=== PATIENT | male | born 1970 | race Caucasian/White ===

== ENCOUNTER 2020-08-15 13:37 | Observation (INO) | payer BC, SELFPAY ==
--- NOTE | ~2020-08-15 | XR_ITS ---
EXAMINATION: XR hand LT min 3V INDICATION: Left hand pain and swelling TECHNIQUE: Three views of the left hand are obtained. COMPARISON: None available FINDINGS: There is dorsal soft tissue swelling of the hand overlying the metacarpals. The underlying osseous structures are unremarkable. The joint spaces are maintained. No radiopaque foreign body is i dentified. IMPRESSION: 1. Dorsal soft tissue swelling of the hand without evidence of underlying osseous abnormality or radi opaque foreign body. Reviewed, dictated and finalized at location A. YARD CRANE OPERATOR IMPRESSION: 1. Dorsal soft tissue swelling of the hand without evidence of underlying osseo us abnormality or radiopaque foreign body.
[2020-08-15 13:42] VITALS: BP 158/95; PULSE 96; RESP 18; TEMP 36.5; O2SAT 99
--- NOTE | 2020-08-15 14:42 | ED.WOUNDLAC ---
HPI - Wound/Laceration General Chief Complaint: Extremity Injury, Upper <Sherrell Lugo PA-C - Last Filed: 08/15/20 17:50> Stated Complaint: swelling left hand <MANDI Sandy Last Filed: 08/15/20 17:50> Time Seen by Provider: 08/15/20 14:21 <MANDI Sandy Last Filed: 08/15/20 17:50> Source: patient <MANDI Sandy Last Filed: 08/15/20 17:50> Mode of arrival: ambulatory <Sherrell Lugo PA-C - Last Filed: 08/15/20 17:50> Limitations: no limitations <MANDI Sandy Last Filed: 08/15/20 17:50> History of Present Illness HPI narrative: This is a 50 year old male that presents to the ER for left hand swelling x 2 weeks. Reports he sustained a laceration from a hatchet. Reports he had sutures placed at [place]. Reports he has had increasing redness and swelling of the hand since. Reports he was seen at Urgent Care for this yesterday and started on Cephalexin. He has taken 3 doses without relief. Denies fever. <Sherrell Lugo PA-C - Last Filed: 08/15/20 17:50> Related Data Allergies/Adverse Reactions: Allergies Allergy/AdvReac Type Severity Reaction Status Date / Time No Known Allergies Allergy Mild Unverified 01/29/12 08:25 <MANDI Sandy Last Filed: 08/15/20 17:50> Review of Systems Review of Systems: Narrative: CONSTITUTIONAL: Denies fever SKIN: Reports erythema and edema NEUROLOGIC: Denies numbness <MANDI Sandy Last Filed: 08/15/20 17:50> All systems reviewed & are unremarkable except as noted in HPI and below <Sherrell Lugo PA-C - Last Filed: 08/15/20 17:50> [facility] Past Medical History Medical History: Medical History (Updated 08/15/20 @ 17:50 by Sherrell Lugo PA-C) No active medical problems <MANDI Sandy Last Filed: 08/15/20 17:50> Social History Social History: Social History (Updated 08/15/20 @ 14:47 by Sherrell Lugo PA-C) Smoking status: Current every day smoker <Sherrell Lugo PA-C - Last Filed: 08/15/20 17:50> Exam Narrative: Exam Narrative: GENERAL: Well-appearing, well-nourished, and in no acute distress. HEAD: Normocephalic, atraumatic. EYES: EOMI. EXTREMITIES: Normal range of motion. Moderate edema and erythema to the left hand. Dorsal surface of the hand with 2.5cm healing laceration. No abnormal drainage noted. Normal sensation. Normal radial pulses SKIN: Warm, dry, no rash. NEURO: No focal deficits. Alert and oriented x3. PSYCH: Normal mood and affect <Sherrell Lugo PA-C - Last Filed: 08/15/20 17:50> Course CANDY WRAPPING MACHINE OPERATOR/PA Physician Supervision For this patient encounter, I reviewed the CANDY WRAPPING MACHINE OPERATOR or PA documentation, treatment plan, and medical decision making; and I had [id number] time with this patient. 50-year-old male presents to emergency department for left hand infection. Patient had sutures placed about 2 weeks ago after sustaining an injury to his left hand at a local emergency department. Patient states the swelling and erythema has worsened over the past 2 weeks. Has not take anything for the pain so far. Physical exam reveals left hand posterior wound with erythema and swelling noted. <Jose Manuel Smith DO - Last Filed: 08/15/20 17:37> Consultations Consultation #1: Spoke with Dr. Berkowitz about patient and work-up will consult. <Sherrell Lugo PA-C - Last Filed: 08/15/20 17:50> Date: 08/15/20 <Sherrell Lugo PA-C - Last Filed: 08/15/20 17:50> Time: 17:46 <Sherrell Lugo PA-C - Last Filed: 08/15/20 17:50> Consultation #2: Spoke with hospitalist about patient and work-up who accepts admission <Sherrell Lugo PA-C - Last Filed: 08/15/20 17:50> Date: 08/15/20 <Sherrell Lugo PA-C - Last Filed: 08/15/20 17:50> Time: 17:46 <Sherrell Lguo PA-C - Last Filed: 08/15/20 17:50> Vital Signs Vital signs: Vital Signs Temperature 97.7 F 08/15/20 13:42 Pulse Rate 96 08/15/20 13:4
[2020-08-15 15:11] LABS: Basophils Absolute Auto 0.1 K/mm3 (0.0-0.1); Basophils Percent Auto 0.8 % (0.2-1.2); Eosinophils Absolute Auto 0.3 K/mm3 (0-0.3); Eosinophils Percent Auto 2.1 % (0-4.4); Hematocrit 47.7 % (42.0-52.0); Hemoglobin 16.5 g/dL (14.0-18.0); Immature Granulocyte Absolute 0.04 K/mm3 (0.00-0.031); Immature Granulocyte Percent A 0.3 % (0-0.5); Lymphocytes Absolute Auto 2.35 K/mm3 (0.9-3.2); Lymphocytes Percent Auto 19.4 % (18.3-44.2); Mean Corpuscular HGB Conc 34.6 g/dl (32-36); Mean Corpuscular Hemoglobin 30.3 pg (26-34); Mean Corpuscular Volume 87.5 fl (80-100); Mean Platelet Volume 8.7 fl (7.4-10.4); Monocytes Absolute Auto 1.2 K/mm3 (0.1-0.6); Monocytes Percent Auto 9.6 % (2.6-8.5); Neutrophils Absolute Auto 8.2 K/mm3 (1.3-6.7); Neutrophils Percent Auto 67.8 % (45.5-73.1); Platelet Count Result 359 k/mm3 (150-375); Red Blood Count 5.45 M/mm3 (4.6-6.20); Red Cell Distribution Width 13.4 % (11.5-14.5); White Blood Count 12.1 K/mm3 (4.5-10.0)
[2020-08-15 15:54] LABS: Anion Gap 6 mmol/L (8-16); Blood Urea Nitrogen 8 mg/dL (9-20); CRP 0.8 mg/dL (<1.0); Calcium 9.1 mg/dL (8.4-10.2); Carbon Dioxide 29 mmol/L (22-30); Chloride 101 mmol/L (98-107); Estimated CRCL calculation 123 ml/min; Estimated Glomerular Filt Rate > 60; Glucose 79 mg/dL (75-110); Potassium 3.9 mmol/L (3.4-5.0); Sodium 136 mmol/L (137-145)
[2020-08-15 16:34] LABS: Erythrocyte Sedimentation Rate 1 mm/hr (0-20)
[2020-08-15] MEDS: TETANUS,DIPHTHERIA,AC PERTUSSIS ADULT (0.5 ML) BOOSTRIX IM (18:20)
[2020-08-15 18:21] VITALS: BP 146/92; PULSE 84; RESP 16; O2SAT 99
[2020-08-15] MEDS: KETOROLAC 30 MG/ML VIAL (*BKC) IV PUSH (18:27)
--- NOTE | 2020-08-15 18:35 | PC.NURSE ---
This patient, Porfirio Rg, was admitted to Medical Room 340-01. Patient/family oriented to hospital policies and general routines including ID bracelet, bed and alarms, visiting hours, pain management, procedures, bathroom and other care routines, personal items, smoking policy, room service/diet, and visiting hours. Information on how to activate the Rapid Response Team has been discussed. Patient/Family are encouraged to report perceived risks to care and to ask questions if they do not understand what they are told or what they should do.
[2020-08-15 18:42] VITALS: BP 134/94; PULSE 78; RESP 16; TEMP 36.1; O2SAT 100; BMI 22.6
--- NOTE | 2020-08-15 18:43 | PC.NURSE ---
Pt transported to [address] [place] [address] with vancomycin still infusing. Pt handed off to МАРИНА Gandara
[2020-08-15 20:18] VITALS: BP 132/65; PULSE 93; RESP 16; TEMP 36.6; O2SAT 100
--- NOTE | 2020-08-15 23:30 | PM.IMHP ---
H&P: HPI History of Present Illness Date/Time: 08/15/20 23:30 Chief complaint: Left hand pain and swelling. Narrative: Porfirio Rg is a pleasant left handed 50-year-old male smoker without significant medical history presented to the emergency department for evaluation of left hand pain and swelling. He sustained a laceration on the dorsum of his left hand about 2 weeks ago and had it sutured at [place]. Over the 7-10 days or so he has developed swelling and discomfort at the site, and was seen at a local urgent care yesterday. He was prescribed Keflex and has taken 3 doses, however he continues to have swelling, pain, and increasing redness about the site and thus he came in today for evaluation. He has not noticed any significant drainage and is able to make a fist and extend his fingers without issue, albeit he does have pain with that. No numbness or tingling in the fingers of the left hand. He also denies fever, chills, and sweats. No history of MRSA. Review of Systems Review of Systems: Narrative: Twelve systems were reviewed with pertinent positives and negatives as per HPI. No fever, chills, or sweats. No recent cold or flu symptoms. He denies cough and shortness of breath. No exposure to those positive for COVID-19. Except as documented, all other systems were reviewed and are negative. [facility] Past Medical History Medical History (Updated 08/15/20 @ 23:50 by Jen Kaye PA-C) Gastroesophageal reflux disease Tobacco dependence Surgical History Surgical History (Updated 08/15/20 @ 23:50 by Jen Kaye PA-C) History of herniorrhaphy (~2014) Family History Family History (Updated 08/16/20 @ 00:06 by Jen Kaye PA-C) Other No significant family history Social History Social History (Updated 08/16/20 @ 00:07 by Jen Kaye PA-C) Social History: Surrogate decision maker: matt Barros. Code status: Full code. Smoking packs per day: 2 Smoking cigarettes per day: 40.0 Smoking status: Current every day smoker Alcohol intake: current Drinks per week: 14 Substance use type: marijuana Last use: 08/14/2020 Additional living arrangements comments: Resides in [place] with his matt. 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 Spiritual care concerns: No Meds Home Medications and Allergies Home Medications Medication Instructions Recorded Confirmed Type No Home Medications 08/15/20 08/15/20 History Allergies Allergy/AdvReac Type Severity Reaction Status Date / Time No Known Allergies Allergy Mild Unverified 01/29/12 08:25 Vital Signs Vital Signs - 24 hr 08/15/20 13:42 08/15/20 18:21 08/15/20 18:42 Temperature 97.7 F 97.0 F L Pulse Rate 96 84 78 Respiratory Rate 18 16 16 Blood Pressure 158/95 H 146/92 H 134/94 H Pulse Oximetry 99 99 100 08/15/20 20:18 Temperature 98 F Pulse Rate 93 Respiratory Rate 16 Blood Pressure 132/65 Pulse Oximetry 100 Exam Narrative: Exam Narrative: General: Well-developed male supine in bed in no distress. Weight: 77.9 kg. BMI: 22.7. HEENT: PERRL, EOMI. Sclerae anicteric. Oral mucosa moist. Oropharynx clear. Neck: Supple. Respiratory: Lungs are clear to auscultation bilaterally. Cardiovascular: Regular rate and rhythm with S1-S2. Gastrointestinal: Abdomen is soft, nontender, and nondistended with positive bowel sounds. Skin: Warm and dry. Extremities: No cyanosis, clubbing, or lower extremity edema. Radial and pedal pulses intact. There is erythema on the proximal, dorsal aspect of the left hand with generalized edema. A dressing is in place which was not removed for examination, as this was recently placed in the emergency department. Capillary refill distal to the laceration is less than 2 seconds. He is neurovascular intact throughout the left hand and fingers. Neurological: Alert. Cranial nerves 2-12 are grossly intact. No
[2020-08-16] MEDS: NICOTINE (*PBKC) 21 MG PATCH 1 PATCH TRANSDERM ×2 (00:53→09:26)
[2020-08-16 05:05] VITALS: BP 124/79; PULSE 90; RESP 16; TEMP 36.1; O2SAT 99
[2020-08-16] MEDS: HYDROcodone/acetaminophen (*CRX) 5-325 MG TABLET 1 TAB PO (06:24)
--- NOTE | 2020-08-16 06:54 | WPDCN ---
Assessment and Plan Assessment and plan (1) Cellulitis of left hand: Code(s): L03.114 - Cellulitis of left upper limb Status: Acute Assessment and Plan: Per patient significance improvement overnight. I see no the drain. Continue antibiotics. Follow up with me in office. Today we had a lengthy discussion about the options. The care. What monitor for. This was a lengthy open-ended conversation making sure he was well informed. He would like proceed as above. I will see him back in clinic. Discharge planning per hospitalist. Please feel free to call me with any questions or concerns. (2) Elevated blood pressure reading: Code(s): R03.0 - Elevated blood-pressure reading, without diagnosis of hypertension Status: Acute (3) Tobacco dependence: Code(s): F17.200 - Nicotine dependence, unspecified, uncomplicated Status: Acute Assessment and Plan: He understands risk of nicotine use. HPI Data of Consult Date/Time: 08/16/20 06:54 He is a left-hand dominant gentleman that comes in today for evaluation of his left dorsal hand. Approximately 2 weeks ago we cut this with hatchet. He had great range of motion this was repaired [facility]. He was doing well until recently be and have a little bit of erythema. Went to the emergency room yesterday and a temp to drain. No purulence identified. Subsequently was admitted for IV antibiotics. He says since that time he has actually seen significant improvement just overnight. Good range of motion. Normal sensation. No fevers or chills. No nausea vomiting. No shortness of breath. No chest pain. Requesting Physician: Bryce Savage PA-C Primary Care Provider: EQUINE MANAGER PHYSICIAN Consult Narrative Narrative: Porfirio Rg is a 50 year old male Review of Systems Review of Systems: All systems reviewed & are unremarkable except as noted in HPI and below PMFSH Past Medical History Medical History (Updated 08/15/20 @ 23:50 by Jen Kaye PA-C) Gastroesophageal reflux disease Tobacco dependence Surgical History Surgical History (Updated 08/15/20 @ 23:50 by Jen Kaye PA-C) History of herniorrhaphy (~2014) Family History Family History (Updated 08/16/20 @ 00:06 by Jen Kaye PA-C) Other No significant family history Social History Social History (Updated 08/16/20 @ 00:07 by Jen Kaye PA-C) Social History: Surrogate decision maker: matt Barros. Code status: Full code. Smoking packs per day: 2 Smoking cigarettes per day: 40.0 Smoking status: Current every day smoker Alcohol intake: current Drinks per week: 14 Substance use type: marijuana Last use: 08/14/2020 Additional living arrangements comments: Resides in [place] with his matt. 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 Spiritual care concerns: No Meds Home Medications and Allergies Home Medications Medication Instructions Recorded Confirmed Type No Home Medications 08/15/20 08/15/20 History Allergies Allergy/AdvReac Type Severity Reaction Status Date / Time No Known Allergies Allergy Mild Unverified 01/29/12 08:25 Vital Signs Vital Signs - 24 hr 08/15/20 13:42 08/15/20 18:21 08/15/20 18:42 Temperature 36.5 C 36.1 C L Pulse Rate 96 84 78 Respiratory Rate 18 16 16 Blood Pressure 158/95 H 146/92 H 134/94 H Pulse Oximetry 99 99 100 08/15/20 20:18 08/16/20 05:05 Temperature 36.6 C 36.1 C L Pulse Rate 93 90 Respiratory Rate 16 16 Blood Pressure 132/65 124/79 Pulse Oximetry 100 99 Exam Narrative: Exam Narrative: Left hand with a full normal range of motion. Normal gross sensation. He does have a little erythema along the dorsum however the I see no purulence or fluctuance. Const: General: comfortable, no acute distress, alert and awake; No acute distress Orientation/consciousness: orie
[2020-08-16 09:15] LABS: Anion Gap 7 mmol/L (8-16); Basophils Absolute Auto 0.1 K/mm3 (0.0-0.1); Blood Urea Nitrogen 7 mg/dL (9-20); Calcium 8.4 mg/dL (8.4-10.2); Carbon Dioxide 30 mmol/L (22-30); Chloride 101 mmol/L (98-107); Eosinophils Absolute Auto 0.4 K/mm3 (0-0.3); Eosinophils Percent Auto 3.8 % (0-4.4); Estimated CRCL calculation 107 ml/min; Estimated Glomerular Filt Rate > 60; Glucose 146 mg/dL (75-110); Hematocrit 45.9 % (42.0-52.0); Hemoglobin 15.3 g/dL (14.0-18.0); Immature Granulocyte Absolute 0.02 K/mm3 (0.00-0.031); Immature Granulocyte Percent A 0.2 % (0-0.5); Lymphocytes Absolute Auto 2.36 K/mm3 (0.9-3.2); Lymphocytes Percent Auto 25.9 % (18.3-44.2); Mean Corpuscular HGB Conc 33.3 g/dl (32-36); Mean Corpuscular Hemoglobin 29.3 pg (26-34); Mean Corpuscular Volume 87.8 fl (80-100); Mean Platelet Volume 9.1 fl (7.4-10.4); Monocytes Absolute Auto 0.9 K/mm3 (0.1-0.6); Monocytes Percent Auto 9.6 % (2.6-8.5); Neutrophils Absolute Auto 5.4 K/mm3 (1.3-6.7); Neutrophils Percent Auto 59.5 % (45.5-73.1); Platelet Count Result 350 k/mm3 (150-375); Potassium 3.9 mmol/L (3.4-5.0); Red Blood Count 5.23 M/mm3 (4.6-6.20); Red Cell Distribution Width 13.1 % (11.5-14.5); Sodium 138 mmol/L (137-145); White Blood Count 9.1 K/mm3 (4.5-10.0)
--- NOTE | 2020-08-16 09:56 | PM.IMPN ---
Progress Note: A&P Assessment and Plan (1) Cellulitis of left hand: Code(s): L03.114 - Cellulitis of left upper limb Status: Acute Assessment and Plan: Patient appears to have improved clinically overnight. Afebrile, Leukocytosis improved. As discussed in HPI, patient agreeable to stay overnight for additional IV antibiotics and repeat labs in the morning. Dr. Berkowitz consulted and appreciate recommendations Will continue with IV vanc for now Likely discharge on PO bactrim tomorrow if continued improvement Monitor labs. Pain control as needed; encouraged tylenol if tolerable Monitor overnight (2) Elevated blood pressure reading: Code(s): R03.0 - Elevated blood-pressure reading, without diagnosis of hypertension Status: Acute Assessment and Plan: BP appears to have imrpoved overnight. 120s sys this morning Monitor for now Consider adding bp med if no improvement (3) Tobacco dependence: Code(s): F17.200 - Nicotine dependence, unspecified, uncomplicated Status: Acute Assessment and Plan: Smoking cessation encouraged nicotine patch available as needed Subjective Date/time seen: 08/16/20 09:56 Interval history: Patient is a 50 yo M with history of GERD and tobacco dependance who is seen in follow up for left hand cellulitis after sustaining a laceration roughly 2 weeks ago. Patient states he has seen much improvement in his range of motion, swelling and pain. Redness has also improved. He is eager to leave today but after long discussion about different options including staying overnight for further IV antibiotics, he was agreeable to this plan. No other complaints at the moment. Denies subjective f/c/s, cp/palpitations, sob/cough, n/v/d/c, abd pain, changes in BMs, dysuria, calf pain/swelling. Review of Systems Review of Systems: All systems reviewed & are unremarkable except as noted in HPI and below Exam Narrative: Exam Narrative: General: Patient resting supine in bed in no acute distress. HEENT: Normocephalic, EOMI, oral mucosa moist. Cardiovascular: Rate and rhythm are regular. No notable murmur, rub, or gallop. Respiratory: Lungs clear to auscultation all morales. Non-labored breathing. Abdomen: Soft, non-tender, non-distended, bowel sounds present. Extremities: Peripheral pulses intact. No LE edema. Left hand has generalized edema; apparent full ROM; fish drier strength 5/5 b/l; cap refill <2 seconds; NVI; bandage over dorsum of hand removed and showed quarter-sized erythema and edema surrounding a roughly 2-3cm healing laceration with no apparent drainage; well approximated borders Neuro: No focal neurological deficits. Speech is clear. Objective Data Vital Signs Vital Signs: Last Vital Signs Temp 96.9 F L 08/16/20 05:05 Pulse 90 08/16/20 05:05 Resp 16 08/16/20 05:05 BP 124/79 08/16/20 05:05 Pulse Ox 99 08/16/20 05:05 Intake/Output Intake/Output: Intake & Output 08/13/20 08/14/20 08/15/20 08/16/20 23:59 23:59 23:59 23:59 Intake Total 300 1410 Output Total 950 Balance 300 460 Meds/Results Medications: Active Medications Generic Name Dose Route Start Last Admin Trade Name Freq PRN Reason Stop Dose Admin Acetaminophen 650 mg 08/16/20 00:12 Acetaminophen 325 Mg Tablet PO Q6H PRN Mild Pain (1-3) or Fever Hydrocodone Bitart/Acetaminophen 1 tab 08/16/20 00:12 08/16/20 06:24 Hydrocodone/Acetaminophen (*Crx) 5-325 Mg Tablet PO 1 tab Q6H PRN Administration Pain Rated 4-6 Cefazolin Sodium 1 gm in 50 mls @ 100 mls/hr 08/16/20 02:00 08/16/20 09:28 Ancef 1 Gm/D5w 50 Ml Pm IVPB 100 mls/hr Q8H BRIAN Administration Vancomycin HCl 1,250 mg in 250 mls @ 200 mls/hr 08/16/20 04:00 08/16/20 06:13 Vancomycin 1,250 Mg/D5w 250 Ml IVPB Infused Q12H [facility] Infusion
[2020-08-16 14:00] VITALS: BP 133/83; PULSE 86; RESP 16; TEMP 36.1; O2SAT 99
[2020-08-16 19:35] VITALS: BP 133/83; PULSE 88; RESP 18; TEMP 36.1; O2SAT 98
[2020-08-17 03:15] LABS: Hematocrit 47.6 % (42.0-52.0); Hemoglobin 16.2 g/dL (14.0-18.0); Mean Corpuscular Hemoglobin 30.1 pg (26-34); Mean Corpuscular Volume 88.5 fl (80-100); Mean Platelet Volume 8.8 fl (7.4-10.4); Platelet Count Result 337 k/mm3 (150-375); Red Blood Count 5.38 M/mm3 (4.6-6.20); Red Cell Distribution Width 13.2 % (11.5-14.5); White Blood Count 8.7 K/mm3 (4.5-10.0)
[2020-08-17 03:31] LABS: Anion Gap 3 mmol/L (8-16); Blood Urea Nitrogen 7 mg/dL (9-20); Calcium 8.5 mg/dL (8.4-10.2); Carbon Dioxide 32 mmol/L (22-30); Chloride 103 mmol/L (98-107); Estimated CRCL calculation 121 ml/min; Estimated Glomerular Filt Rate > 60; Glucose 106 mg/dL (75-110); Magnesium 2.1 mg/dL (1.6-2.3); Potassium 3.8 mmol/L (3.4-5.0); Sodium 138 mmol/L (137-145)
[2020-08-17 04:02] LABS: Vancomycin Trough 6.6 ug/mL (10.0-20.0)
[2020-08-17 06:00] VITALS: BP 114/68; PULSE 77; RESP 16; TEMP 36.2; O2SAT 97
[2020-08-17] MEDS: NICOTINE (*PBKC) 21 MG PATCH 1 PATCH TRANSDERM (08:05)
--- NOTE | 2020-08-17 08:27 | PM.DS ---
DS: Admitting Diagnosis Admitting Diagnosis Admitting Diagnosis: Left hand pain and swelling. DS: Discharge Diagnosis Discharge Diagnosis (1) Cellulitis of left hand: Code(s): L03.114 - Cellulitis of left upper limb Status: Acute Assessment and Plan: Patient clinically improved again overnight. Afebrile during stay, Leukocytosis WNL today. Dr. Berkowitz consulted and appreciate recommendations IV vanc during stay (ancef IV initially as well, but d/c'd) Discharge today on PO DS bactrim Q12 starting tonight, through 08/22 to complete 7 days total of antibiotics Tylenol PRN (2) Elevated blood pressure reading: Code(s): R03.0 - Elevated blood-pressure reading, without diagnosis of hypertension Status: Acute Assessment and Plan: BP appears to have imrpoved; 110s sys this morning F/u with PCP once established (3) Tobacco dependence: Code(s): F17.200 - Nicotine dependence, unspecified, uncomplicated Status: Acute Assessment and Plan: Smoking cessation encouraged during stay nicotine patch available as needed DS: Summary Hospital Course Reason for hospitalization: Left hand cellulitis; failed OP therapy Hospital Course: Patient is a 50 yo male smoker who presented to ED on 08/15 from home for evaluation of left hand pain/swelling that had been ongoing for 2 weeks after patient sustained a laceration with an axe on the dorsum of his left hand. The laceration was treated at [facility] 2 weeks ago and over the past 7-10 days prior to arrival to our ED, he developed swelling and discomfort prompting him to proceed to an UC where he was prescribed PO Keflex. He took 3 doses without improvement and had increasing redness prompting him to proceed to our ED. While in the ED, he was found to have leukocytosis of 12.1k, afebrile, and stable VS with elevated initial BP. Dr. Berkowitz was consulted from the ED for further input. Patient admitted under this setting. Please see H&P for further details. Patient was admitted to the hospitalist service for further evaluation/management. Initially, patient placed on vanc and Ancef IV from the ED, however, Ancef was discontinued. He continued on IV vanc through morning of 08/17 with improvement in his swelling and redness and pain; he was able to have increased ROM in his left hand, being able to now make a fist. His leukocytosis resolved and he remained afebrile with stable VS. BCx showing NGTD x 5 days. Plan was for him to continue antibiotic therapy with Bactrim through 08/22 to complete a course of 7 days total of antibiotics. He was to follow up with Dr. Berkowitz after discharge. Patient agreeable and comfortable with plan for discharge. Patient hemodynamically stable and in improved condition for discharge on 08/17 Status at Discharge Overall status at discharge: patient is progressing back to baseline Time Spent with Patient Time attestation: Total time spent providing and/or coordinating discharge services: Time spent: Greater than 30 minutes Exam Narrative: Exam Narrative: General: Patient sitting on side of bed in bed in no acute distress. HEENT: Normocephalic, EOMI, oral mucosa moist. Cardiovascular: Rate and rhythm are regular. No notable murmur, rub, or gallop. Respiratory: Lungs clear to auscultation all morales. Non-labored breathing. Abdomen: Soft, non-tender, non-distended, bowel sounds present. Extremities: Peripheral pulses intact. No LE edema. Left hand has generalized edema which has slightly improved; apparent full ROM; shuttle fitting supervisor strength 5/5 b/l; cap refill <2 seconds; NVI; bandage over dorsum of hand removed and showed quarter-sized improved but slight erythema and edema surrounding a roughly 2-3cm healing laceration with no apparent drainage; well approximated borders Neuro: No
== END 2020-08-17 10:03 | disposition home or self-care (01) ==
LOC: ANHED 17:50 → ANH3MED 18:31
PROVIDERS: Physician Assistant; Admitting Provider Family Medicine; Emergency Provider Emergency Medicine; Referring Provider Family Medicine; Visit Provider Internal Medicine
DX: L03.114 Cellulitis of left upper limb (principal); R03.0 Elevated blood-pressure reading, without diagnosis of hypertension; F17.210 Nicotine dependence, cigarettes, uncomplicated; K21.9 Gastro-esophageal reflux disease without esophagitis; F12.90 Cannabis use, unspecified, uncomplicated
CPT/HCPCS: 36415; 73130; 80048; 80202; 83735; 85025; 85027; 85652; 86140; 87040; 90471; 90715; 96365; 96366; 96367; 96375; 99285; A9270; G0378; J0690; J1885; J3370

== ENCOUNTER 2023-04-17 16:33 | Emergency (ER) | payer BC, SELFPAY ==
--- NOTE | ~2023-04-17 | XR_ITS ---
XR lumbar spine 2-3V DATE: 04/17/2023 17:32 INDICATION: Low back pain. No known injury. TECHNIQUE: AP, lateral, coned lateral lumbosacral views COMPARISON: 07/02/2014 lumbar spine FINDINGS: There are 6 functional lumbar vertebrae. There is mild thoracolumbar dextroscoliosis. There is degenerative change at the lumbar apophyseal joints with associated grade 1 anterolisthesis at L3-4 and L4-5. There is mild degenerative disc disease throughout the lumbar and lumbosacral spine. There is degener ative spurring in the lower thoracic spine. No fracture or bone destruction is detected. The lumbar pedicles are intact. The sacroiliac joints are intact. IMPRESSION: Mild distention scoliosis Mild degenerative disc disease Degenerative changes apophyseal joints with associated grade 1 anterolisthesis L3-4 and L4-5 Little interval change since 07/02/2014 Reviewed, dictated and finalized at location A.
[2023-04-17 16:36] VITALS: BP 126/90; PULSE 111; RESP 18; TEMP 36.4; O2SAT 100
--- NOTE | 2023-04-17 17:21 | ED.BACK ---
HPI - Back Pain/Injury General Chief Complaint: Back Pain/Injury Stated Complaint: back pain Time Seen by Provider: 04/17/23 17:16 History of Present Illness HPI Narrative: 52-year-old male presents to the emergency room with gradual onset of low back pain that began 1 week ago. Denies any injury or trauma. States pain is worse with rotational and lateral bend movements. Denies any radiating pain. No saddle anesthesia. Denies fevers. Related Data Allergies Allergy/AdvReac Type Severity Reaction Status Date / Time No Known Allergies Allergy Mild Verified 04/17/23 17:15 Review of Systems Review of Systems: CONSTITUTIONAL: Denies fever, chills, or sweats. EYES: Denies visual changes, redness, or discharge. ENT: Denies rhinorrhea, congestion, sore throat, or otalgia. CARDIOVASCULAR: Denies chest pain, palpitations, or edema. RESPIRATORY: Denies cough or dyspnea. GASTROINTESTINAL: Denies abdominal pain, nausea, vomiting, or diarrhea. GENITOURINARY: Denies dysuria or hematuria. SKIN: Denies rash or itching. MUSCULOSKELETAL: Reports low back pain NEUROLOGIC: Denies headache, numbness, dizziness, or weakness. PSYCHIATRIC: Denies anxiety or depression. [facility] Past Medical History Medical History Gastroesophageal reflux disease Tobacco dependence Surgical History Surgical History History of herniorrhaphy (~2014) Family History Family History Other No significant family history Social History Social History Social History: Surrogate decision maker: matt Barros. Code status: Full code. Smoking packs per day: 2 Smoking cigarettes per day: 40.0 Smoking status: Current every day smoker Alcohol intake: current Drinks per week: 14 Substance use type: marijuana Last use: 08/14/2020 Additional living arrangements comments: Resides in [place] with his matt. 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 Spiritual care concerns: No Course Vital Signs Vital signs: Vital Signs Temperature 36.4 C L 04/17/23 16:36 Pulse Rate 111 H 04/17/23 16:36 Respiratory Rate 18 04/17/23 16:36 Blood Pressure 126/90 04/17/23 16:36 Pulse Oximetry 100 04/17/23 16:36 Oxygen Delivery Room Air 04/17/23 16:36 Temperature 36.4 C L 04/17/23 16:36 Pulse Rate 111 H 04/17/23 16:36 Respiratory Rate 18 04/17/23 16:36 Blood Pressure 126/90 04/17/23 16:36 Pulse Oximetry 100 04/17/23 16:36 Oxygen Delivery Room Air 04/17/23 16:36 MDM - Back Pain/Injury Imaging Data My impression: No acute fracture Discharge Plan Discharge Clinical Impression: Strain of lumbar region Qualifiers: Encounter type: initial encounter Qualified Code(s): S39.012A - Strain of muscle, fascia and tendon of lower back, initial encounter Patient Disposition: Home, Self-Care Condition: Stable Instructions: Antibiotic Form, Acute Low Back Pain (ED) Prescriptions: New methocarbamol 500 mg tablet 500 mg PO TID Qty: 21 0RF naproxen 500 mg tablet 500 mg PO BID Qty: 14 0RF No Action sulfamethoxazole-trimethoprim [Bactrim DS] 800-160 mg tablet 1 tablet PO Q12H Qty: 10 0RF Rx Instructions: Take 1 tablet by mouth every 12 hours. Start tonight, 08/17; end morning of 08/22 Follow-up/Referrals: PHYSICIAN,PAINT ROLLER COVERS SUPERVISOR [Primary Care Provider] - Time of Disposition: 18:16
[2023-04-17 18:38] VITALS: BP 132/79; PULSE 92; RESP 17; O2SAT 98
== END 2023-04-17 18:39 | disposition home or self-care (01) ==
PROVIDERS: Emergency Provider Nurse Practitioner Family
DX: S39.012A Strain of muscle, fascia and tendon of lower back, initial encounter (principal); F17.210 Nicotine dependence, cigarettes, uncomplicated; X58.XXXA Exposure to other specified factors, initial encounter
CPT/HCPCS: 72100; 99283

== ENCOUNTER 2023-04-18 09:00 | Emergency (ER) | payer BC, SELFPAY ==
[2023-04-18 09:00] VITALS: BP 135/79; PULSE 96; RESP 16; TEMP 36.4; O2SAT 100
[2023-04-18 09:06] VITALS: BP 140/107; PULSE 92; RESP 15; TEMP 36.7; O2SAT 99
--- NOTE | 2023-04-18 10:04 | ED.BACK ---
HPI - Back Pain/Injury General Chief Complaint: Back Pain/Injury Stated Complaint: Back pain Time Seen by Provider: 04/18/23 09:22 Source: patient and old records reviewed Mode of arrival: ambulatory Limitations: no limitations History of Present Illness HPI Narrative: Patient is a 52-year-old male who presents to the ED with report of low back pain. Patient reports the pain began 1 week ago and has been gradually progressing since then. He complains of pain with any movement, worse with rotation/twisting. He denies any known injury or heavy lifting. He was seen in the ED yesterday, x-ray without evidence for acute injury, and was prescribed naproxen and Robaxin. Patient states he took these last night around 830 but then went to bed immediately afterwards. He did not take anything for pain this morning. He went to work, but was unable to perform some duties due to the pain, so he returned. Patient denies any further injury. Denies saddle anesthesia, bowel or bladder incontinence, dysuria, hematuria, abdominal pain, fevers. Related Data Allergies Allergy/AdvReac Type Severity Reaction Status Date / Time No Known Allergies Allergy Mild Verified 04/17/23 17:15 Review of Systems Review of Systems: CONSTITUTIONAL: Denies fever, chills, or sweats. CARDIOVASCULAR: Denies chest pain. RESPIRATORY: Denies dyspnea. GASTROINTESTINAL: Denies abdominal pain, nausea, vomiting. GENITOURINARY: Denies dysuria or hematuria. MUSCULOSKELETAL: See HPI. NEUROLOGIC: Denies headache, numbness, or weakness. All systems reviewed & are unremarkable except as noted in HPI and below PMFSH Past Medical History Medical History Gastroesophageal reflux disease Tobacco dependence Surgical History Surgical History History of herniorrhaphy (~2014) Family History Family History Other No significant family history Social History Social History Social History: Surrogate decision maker: matt Barros. Code status: Full code. Smoking packs per day: 2 Smoking cigarettes per day: 40.0 Smoking status: Current every day smoker Alcohol intake: current Drinks per week: 14 Substance use type: marijuana Last use: 08/14/2020 Additional living arrangements comments: Resides in [place] with his matt. 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 Spiritual care concerns: No Exam Narrative: GENERAL: Well appearing, well-nourished, non-toxic, in no acute distress. HEAD: Normocephalic, atraumatic. NECK: Supple. No adenopathy, no masses. RESPIRATORY: Airway patent, respirations nonlabored. Clear to auscultation bilaterally, no rales, rhonchi, wheezing. CARDIOVASCULAR: Regular rate and rhythm without murmurs, rubs, or gallops. Radial pulses 2+ and equal bilaterally. ABDOMINAL: Soft, nontender, nondistended, no hepatosplenomegaly. Normoactive BS. MUSCULOSKELETAL: Moves all extremities. Strength/ROM intact without gross deformities. No significant lumbar midline spinal tenderness. Mild tenderness to bilateral paraspinal musculature in lumbosacral region, no palpable deformities. SKIN: Warm, dry, normal color. No rashes. NEURO: A&O X3. Speech clear. Cranial nerves II-XII grossly intact. Steady gait. No ataxic movements. PSYCHIATRIC: Appropriate mood and affect. Normal interaction. Course Vital Signs Vital signs: Vital Signs Temperature 97.5 F L 04/18/23 09:00 Pulse Rate 96 04/18/23 09:00 Respiratory Rate 16 04/18/23 09:00 Blood Pressure 135/79 04/18/23 09:00 Pulse Oximetry 100 04/18/23 09:00 Oxygen Delivery Room Air 04/18/23 09:00 Temperature 98.0 F 04/18/23 09:06 Pulse Rate 92 04/18/23 09:06 Respiratory Rate 15 04/18/23 09
[2023-04-18] MEDS: ACETAMINOPHEN 500 MG TABLET 1000 MG PO (10:08)
[2023-04-18] MEDS: KETOROLAC (*BKC) 60 MG/2 ML VIAL IM (10:08)
== END 2023-04-18 11:09 | disposition home or self-care (01) ==
PROVIDERS: Emergency Provider Physician Assistant
DX: S39.012A Strain of muscle, fascia and tendon of lower back, initial encounter (principal); K21.9 Gastro-esophageal reflux disease without esophagitis; F17.210 Nicotine dependence, cigarettes, uncomplicated; X58.XXXA Exposure to other specified factors, initial encounter
CPT/HCPCS: 96372; 99283; A9270; J1885